=== PATIENT | male | born 1985 | race Caucasian/White ===

== ENCOUNTER 2018-03-29 21:09 | Emergency (ER) | payer OTHER ==
[~2018-03-29] VITALS: Ht 182.9 cm; Wt 95.3 kg
[~2018-03-29 21:09] MED LIST: ALBUTEROL2.5 MG/31 INH; CEPHALEXIN 500500 M2 PO; ERYTHROMYCIN E3.5 G2 OP; FLEXERIL PO; HYDROCODONE-AP1 EAC6 PO; IBUPROFEN 800800 M1 PO; IBUPROFEN 800800 MG PO; MEDROL DOSPAK21 TA1 PO; NOHOMEMEDICATIONS; NORCO 5-325 TA1 EACH PO; PERCOCET 5-3251 EACH PO; PERCOCET 7.5-31 EACH PO; PREDNISONE 10 M10 MG PO; PROAIR HFA8.5 GM IH; SSD CREAM 1% 5050 GM TOP; TOBREX3.5 GM OP
[2018-03-29 21:16] VITALS: BP 143/86
[2018-03-29] MEDS ORDERED: ZPAK PO (21:26)
[2018-03-29] MEDS ORDERED: VENTOLIN HFA 1818 GM INH (21:26)
[2018-03-29] MEDS ORDERED: PREDNISONE 20 M20 M1 PO (21:26)
== END 2018-03-29 21:38 | disposition home or self-care (01) ==
LOC: M.ERS 21:09
DX: J40 Bronchitis, not specified as acute or chronic (principal); F17.210 Nicotine dependence, cigarettes, uncomplicated; Z90.49 Acquired absence of other specified parts of digestive tract

== ENCOUNTER 2018-12-26 18:32 | Emergency (ER) | payer OTHER ==
[~2018-12-26] VITALS: Ht 182.9 cm; Wt 95.3 kg
[~2018-12-26 18:32] MED LIST changes: +PREDNISONE 20 M20 M1 PO; +VENTOLIN HFA 1818 GM INH; +ZPAK PO
[2018-12-26 18:36] VITALS: BP 143/98
[2018-12-26] MEDS ORDERED: TOBRAMYCIN SULFA5 M1 OPHTHALMIC (19:24)
== END 2018-12-26 19:35 | disposition home or self-care (01) ==
LOC: M.ERS 18:32
DX: S05.02XA Injury of conjunctiva and corneal abrasion without foreign body, left eye, initial encounter (principal); F17.210 Nicotine dependence, cigarettes, uncomplicated; Z88.5 Allergy status to narcotic agent; Z90.49 Acquired absence of other specified parts of digestive tract; X58.XXXA Exposure to other specified factors, initial encounter; Y93.89 Activity, other specified; Y92.89 Other specified places as the place of occurrence of the external cause; Y99.8 Other external cause status